=== PATIENT | male | born 1985 | race African-American/Black ===

== ENCOUNTER 2017-05-22 18:54 | Emergency (ER) | payer OTHER ==
[2017-05-22 19:00] VITALS: BP 145/92; PULSE 100; TEMP 98.6; BMI 27.4
[2017-05-22] MEDS ORDERED: AZITHROMYCIN 500 MG TABLET PO ONE (19:48)
[2017-05-22] MEDS ORDERED: AZITHROMYCIN 500 MG TABLET ONE (19:54)
--- NOTE | 2017-05-22 20:05 | PDOC ---
History of Present Illness - General Chief Complaint: Pain Stated Complaint: STD Time Seen by Provider: 05/22/17 19:07 - History of Present Illness Initial Comments: 05/22/17 19:58 CHIEF COMPLAINT: std exposure HISTORY OF PRESENT ILLNESS: 32 yo M with no past medical history presents [facility] with concerns of STD exposure. Patient reports being told by a former partner that she was "positive for an STD." Patient denies any symptoms , including unusual discharge, penile pain, skin changes, diaphoresis, fever, sore throat, malaise, and reports he has "no symptoms at all." Patient reports that he was tested "both times I went to custodial" and 'both times everything was negative", and states he has not had exposure to this partner "in a long time." PAST MEDICAL HISTORY: Denies past medical history FAMILY HISTORY: Denies SOCIAL HISTORY: Denies tobacco, alcohol, illicit drug use. SURGICAL HISTORY: Denies ALLERGIES: raspberry REVIEW OF SYSTEMS General/Constitutional: Denies fever or chills. Denies weakness, weight change. HEENT: Denies change in vision. Denies ear pain or discharge. Denies sore throat. Cardiovascular: Denies chest pain or shortness of breath. Respiratory: Denies cough, wheezing, or hemoptysis. Gastrointestinal: Denies nausea, vomiting, diarrhea or constipation. Genitourinary: Denies dysuria, frequency, or change in urination. Musculoskeletal: Denies joint or muscle swelling or pain. Denies neck or back pain. Skin and breasts: Denies rash or easy bruising. Neurologic: Denies headache, vertigo, loss of consciousness, or loss of sensation. PHYSICAL EXAM General Appearance: Well-appearing, appropriately dressed. No apparent distress ,. HEENT: EOMI, PERRLA. No conjunctival pallor. No photophobia, scleral icterus. Respiratory/Chest: Lungs CTAB. Cardiovascular: RRR. S1, S2. Gastrointestinal/Abdominal: Normal bowel sounds. Abdomen soft, non-distended. No tenderness or rebound tenderness. No organomegaly, pulsatile mass, guarding , hernia, hepatomegaly, splenomegaly. Musculoskeletal/Extremities: Normal inspection. FROM of all extremities, normal capillary refill. Pelvis Stable. No CVA tenderness. No tenderness to extremities, pedal edema, swelling, erythema or deformity. Integumentary: Appropriate color, dry, warm. 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 Fully oriented, alert. Appropriate mood/affect. Motor strength 5/5. No appreciable EOM palsy, facial droop or sensory deficit. Past History - Past Medical History Allergies/Adverse Reactions: Allergies Allergy/AdvReac Type Severity Reaction Status Date / Time alejandra Allergy Verified 05/22/17 18:56 Home Medications: Ambulatory Orders NK [No Known Home Medication] 05/22/17 COPD: No - Suicide/Smoking/Psychosocial Hx Smoking History: Current every day smoker Have you smoked in the past 12 months: Yes Number of Cigarettes Smoked Daily: 5 Information on smoking cessation initiated: Yes 'Breaking Loose' booklet given: 05/22/17 Hx Alcohol Use: No Drug/Substance Use Hx: No Substance Use Type: Alcohol, Marijuana *Physical Exam - Vital Signs Last Vital Signs Temp Pulse Resp BP Pulse Ox 98.6 F 100 H 18 145/92 100 05/22/17 18:57 05/22/17 18:57 05/22/17 18:57 05/22/17 18:57 05/22/17 18:57 Medical Decision Making - Medical Decision Making 05/22/17 20:05 32 yo M with no past medical history [facility] with concerns of STD exposure. -CT/GC -1g azithromycin, rocephin injection Advised patient to f/u with [facility] should he experience any new or concerning symptoms. Patient verbalized understanding and agrees to plan. *DC/Admit/Observation/Transfer Diagnosis at time of Disposition: Exposure to STD - Discharge Dispostion Disposition: HOME Condition at time of disposition: Stable Admit: No - Referrals Referrals: [facility] [Outside] - Patient Instructions Printed Discharge Instructions: Facts About Sexually Transmitted Infections, How to Detect and Treat STDs - Post Discharge Activity Forms/Work/School Notes: Back to Work
== END 2017-05-22 20:13 | disposition home or self-care (01) ==
LOC: JERFT 18:54
DX: Z20.2 Contact with and (suspected) exposure to infections with a predominantly sexual mode of transmission (principal); F17.210 Nicotine dependence, cigarettes, uncomplicated
CPT/HCPCS: 36415; 87491; 87591; 99281-25